=== PATIENT | female | born 1970 | race Caucasian/White ===

== ENCOUNTER → 2019-05-28 16:54 | Outpatient (CLI) | payer BC ==
[2013-04-08 08:01] VITALS: BMI 30.1
[~2019-05-28 16:54] MED LIST: AMBIEN10 MG PO; ARMOUR THYROID120 MG PO; PROMETRIUM100 MG PO; TOPAMAX50 MG PO
[2019-05-28 17:59] LABS: T4 THYROXIN - FREE 1.14 ng/dL (0.76-1.46); THYROID STIMULATING HORMONE 2.89 uIU/mL (0.36-3.74)
== END | disposition home or self-care (01) ==
LOC: D.LABREF 16:54
PROVIDERS: ATTEND Internal Medicine Interventional Cardiology
DX: R00.2 Palpitations (principal)

== ENCOUNTER → 2019-06-04 10:30 | Outpatient (CLI) | payer BC ==
[2013-04-08 08:01] VITALS: BMI 30.1
--- NOTE | 2019-06-08 09:28 | ST ---
PATIENT:ANGELINA GIL MEDICAL RECORD: [id number] SEX: F LOCATION:[facility] ORDER #: ADMISSION DATE: 06/04/19 AGE OF PATIENT: 48 REFERRING PHYSICIAN: INTERPRETING PHYSICIAN: JANET CHIN MD DATE OF SERVICE: 06/04/2019 Nuclear Stress Test INDICATIONS: Shortness of breath, hypertension, atrial fibrillation. The patient was exercised on standard Lexiscan protocol with 33 mCi of sestamibi injected at peak stress, 11 mCi used previously for rest images. FINDINGS: Gated SPECT reveals preserved ejection fraction at 81% with good wall motion and thickening and brightening throughout all segments. SPECT Imaging: Cardiolite was used as myocardial fusion agent. There is homogeneous uptake throughout all segments at rest and stress with no evidence of inducible ischemia or previous infarction. OVERALL IMPRESSION: 1. This is a normal nuclear stress test with no evidence of inducible ischemia or previous infarction. 2. Gated SPECT reveals a preserved ejection fraction at 81%. In this patient with ongoing symptomatology, the current scan does not suggest the presence of hemodynamically significant coronary artery disease. Evaluate noncardiac etiology of chest pain. TRANSINT:[id number] Voice Confirmation ID: [id number] DOCUMENT ID: [id number] JANET CHIN MD at 0928 CC: ETIENNE GERMAN [id number] DICTATION DATE: [birth year]05/1958 RN PHYSICIAN OFFICE: 06/05/19 2216 [facility] CLI 06/04/19 [id number] [place] [address]
== END | disposition home or self-care (01) ==
LOC: D.HCCARDIO 10:30
PROVIDERS: ATTEND Internal Medicine Interventional Cardiology
DX: R00.2 Palpitations (principal)